=== PATIENT | female | born 1995 | race Caucasian/White ===

== ENCOUNTER 2021-07-15 14:07 | Emergency (ER) | payer BC, OTHER ==
[2021-07-15 14:19] VITALS: BP 124/74; PULSE 95
[2021-07-15] MEDS ORDERED: Sodium Chloride 0.9% 10 ML Syringe FLUSH PRN ×2 (14:19→14:58)
[2021-07-15] MEDS ORDERED: Ondansetron 4 MG/2 ML SDV IVPUSH ONE (14:24)
[2021-07-15] MEDS ORDERED: Sodium Chloride 0.9% 1,000 ML IV STA (14:24)
[2021-07-15] MEDS ORDERED: HYDROmorphone 0.5 MG/0.5 ML Syringe IVPUSH ONE ×2 (14:24→16:28)
[2021-07-15 14:45] LABS: ESTIMATED GFR > 60 mL/min (>60)
[2021-07-15] MEDS ORDERED: Iopamidol 612 MG/ML 100 ML Bottle IVPUSH ONE (14:58)
[2021-07-15] MEDS ORDERED: Ketorolac 30 MG/ML SDV IVPUSH ONE (16:44)
[2021-07-15] MEDS ORDERED: Dicyclomine 10 MG Cap PO ONE (16:45)
== END 2021-07-15 17:35 | disposition home or self-care (01) ==
LOC: JD.ED 14:07
DX: K52.9 Noninfective gastroenteritis and colitis, unspecified (principal); F17.210 Nicotine dependence, cigarettes, uncomplicated; Z79.899 Other long term (current) drug therapy
CPT/HCPCS: 36415; 74177; 80053; 81001; 84703; 85025; 86140; 96361; 96374; 96375; 96376; 99284; A9270; J1170; J1885; J2405; J3490; J7030; Q9967

== ENCOUNTER 2022-06-16 10:43 | Emergency (ER) | payer SELFPAY ==
[2022-06-16] MEDS ORDERED: Adenosine 6 MG/2 ML SDV ONE (10:50)
[2022-06-16] MEDS ORDERED: Sodium Chloride 0.9% 1,000 ML ONE (10:50)
[2022-06-16] MEDS ORDERED: Adenosine 12 MG/4 ML SDV ONE (10:50)
[2022-06-16] MEDS ORDERED: Diltiazem 25 MG/5 ML SDV ONE (10:51)
[2022-06-16] MEDS ORDERED: Adenosine 6 MG/2 ML SDV IVPUSH ONE (11:03)
[2022-06-16] MEDS ORDERED: Sodium Chloride 0.9% 1,000 ML IV ONE (11:04)
[2022-06-16 13:03] LABS: T4 FREE 1.03 ng/dL (0.76-1.46); TSH 2.111 uIU/mL (0.358-3.74)
[2022-06-16 20:26] VITALS: BP 101/76; PULSE 90
== END 2022-06-16 14:00 | disposition home or self-care (01) ==
LOC: JD.ED 10:43
DX: I47.1 Supraventricular tachycardia (principal); E03.9 Hypothyroidism, unspecified; Z79.899 Other long term (current) drug therapy
CPT/HCPCS: 36415; 84439; 84443; 84479; 84481; 93005; 96361; 96374; 99285; J0153; J7030; 93010; 99283

== ENCOUNTER 2022-07-08 09:21 | Emergency (ER) | payer OTHER ==
[2022-07-08] MEDS ORDERED: Sodium Chloride 0.9% 1,000 ML IV SCH (10:00)
[2022-07-08 10:12] LABS: BASOPHILS ABSOLUTE AUTO 0.01 K/mm3 (0.01-0.08); BASOPHILS PERCENT AUTO 0.1 % (0.1-1.2); EOSINOPHILS PERCENT AUTO 0 (0.7-5.8); HEMOGLOBIN 14.4 gm/dl (11.2-15.7); IMMATURE GRAN ABSOLUTE AUTO 0.01 K/mm3 (0.00-0.10); IMMATURE GRAN PERCENT AUTO 0.1 % (<=1.0); LYMPHOCYTES ABSOLUTE AUTO 1.01 K/mm3 (1.18-3.74); LYMPHOCYTES PERCENT AUTO 8.4 % (19.3-51.7); MEAN CORPUSCULAR HEMOGLOBIN 30.9 pg (25.6-32.2); MEAN CORPUSCULAR HGB CONC 34.3 g/dl (32.2-35.5); MEAN CORPUSCULAR VOLUME 90.1 fl (79.4-94.8); MEAN PLATELET VOLUME 10.5 fl (9.4-12.3); MONOCYTES ABSOLUTE AUTO 0.67 K/mm3 (0.24-0.36); MONOCYTES PERCENT AUTO 5.6 % (4.7-12.5); NEUTROPHILS ABSOLUTE AUTO 10.36 K/mm3 (1.56-6.13); NEUTROPHILS PERCENT AUTO 85.8 % (34.0-71.1); PLATELET COUNT,PLT 340 K/mm3 (182-369); RED BLOOD CELL COUNT 4.66 M/mm3 (3.98-5.22); WHITE BLOOD CELL COUNT,WBC 12.06 K/mm3 (3.98-10.04)
[2022-07-08 10:14] VITALS: BP 112/88
[2022-07-08 10:16] LABS: A/G RATIO 1.2 (1-2); ALBUMIN 4.4 g/dl (3.4-5.0); ANION GAP 14.6 (5-15); BILIRUBIN TOTAL 0.4 mg/dL (0.2-1.0); BUN/CREATININE RATIO 14.4 (14-18); CALCIUM 9.7 mg/dL (8.5-10.1); CREATININE 0.9 mg/dL (0.55-1.02); EST CRCL DRUG DOSING (CG) 95.55 mL/min; POTASSIUM,K 3.6 mEq/L (3.5-5.1); PROTEIN TOTAL,TP 8.2 g/dl (6.4-8.2)
[2022-07-08 10:21] LABS: APPEARANCE,URINE SLT CLOUDY (Clear); BILIRUBIN,URINE NEGATIVE (Negative); COLOR,URINE YELLOW (Yellow); GLUCOSE,URINE NEGATIVE (Negative); KETONES,URINE NEGATIVE (Negative); LEUKOCYTE ESTERASE,URINE 1+ (Negative); NITRITE,URINE NEGATIVE (Negative); OCCULT BLOOD,URINE NEGATIVE (Negative); PROTEIN,URINE TRACE (Negative); UROBILINOGEN,URINE 0.2 (0.2-1.0)
[2022-07-08 10:33] LABS: BACTERIA,URINE MANY /hpf (FEW); MUCUS,URINE MODERATE /hpf (FEW); RBC,URINE 0-5 /hpf (0-5)
[2022-07-08] MEDS ORDERED: methylPREDNISolone Sodium Succinate 125 MG/2 ML SDV IVPUSH ONE (10:40)
[2022-07-08] MEDS ORDERED: diphenhydrAMINE 50 MG/ML SDV IVPUSH ONE (10:41)
[2022-07-08] MEDS ORDERED: Famotidine 20 MG/2 ML SDV IVPUSH ONE (10:41)
[2022-07-08 11:00] VITALS: PULSE 65
== END 2022-07-08 12:50 | disposition home or self-care (01) ==
LOC: JD.ED 09:21
DX: L50.0 Allergic urticaria (principal); T43.225A Adverse effect of selective serotonin reuptake inhibitors, initial encounter; E03.9 Hypothyroidism, unspecified; Z86.16 Personal history of COVID-19; Z79.899 Other long term (current) drug therapy
CPT/HCPCS: 36415; 80053; 81001; 81025; 85025; 87086; 93005; 96374; 96375; 99285; J1200; J2930; J3490; J7030; 93010; 99284

== ENCOUNTER 2022-09-15 14:37 | Emergency (ER) | payer OTHER ==
[2022-09-15] MEDS ORDERED: Adenosine 6 MG/2 ML SDV ONE (14:47)
[2022-09-15] MEDS ORDERED: Adenosine 12 MG/4 ML SDV ONE (14:48)
[2022-09-15] MEDS ORDERED: Adenosine 12 MG/4 ML SDV IVPUSH ONE (14:50)
[2022-09-15] MEDS ORDERED: Sodium Chloride 0.9% 10 ML Syringe FLUSH PRN (14:56)
[2022-09-15] MEDS ORDERED: Sodium Chloride 0.9% 1,000 ML IV SCH (15:00)
[2022-09-15 15:10] LABS: BASOPHILS ABSOLUTE AUTO 0.04 K/mm3 (0.01-0.08); BASOPHILS PERCENT AUTO 0.4 % (0.1-1.2); EOSINOPHILS PERCENT AUTO 1.9 (0.7-5.8); HEMATOCRIT 47.3 % (34.1-44.9); HEMOGLOBIN 16.1 gm/dl (11.2-15.7); IMMATURE GRAN ABSOLUTE AUTO 0.02 K/mm3 (0.00-0.10); IMMATURE GRAN PERCENT AUTO 0.2 % (<=1.0); LYMPHOCYTES ABSOLUTE AUTO 3.18 K/mm3 (1.18-3.74); LYMPHOCYTES PERCENT AUTO 30.1 % (19.3-51.7); MEAN CORPUSCULAR HEMOGLOBIN 31.1 pg (25.6-32.2); MEAN CORPUSCULAR VOLUME 91.5 fl (79.4-94.8); MEAN PLATELET VOLUME 10.6 fl (9.4-12.3); MONOCYTES PERCENT AUTO 9.5 % (4.7-12.5); NEUTROPHILS ABSOLUTE AUTO 6.11 K/mm3 (1.56-6.13); NEUTROPHILS PERCENT AUTO 57.9 % (34.0-71.1); PLATELET COUNT,PLT 369 K/mm3 (182-369); RED BLOOD CELL COUNT 5.17 M/mm3 (3.98-5.22); WHITE BLOOD CELL COUNT,WBC 10.55 K/mm3 (3.98-10.04)
[2022-09-15 15:42] LABS: A/G RATIO 1.2 (1-2); ALBUMIN 4.9 g/dl (3.4-5.0); ANION GAP 18.3 (5-15); BILIRUBIN TOTAL 0.6 mg/dL (0.2-1.0); BUN/CREATININE RATIO 12.3 (14-18); CALCIUM 9.9 mg/dL (8.5-10.1); CREATININE 1.3 mg/dL (0.55-1.02); EST CRCL DRUG DOSING (CG) 66.15 mL/min; POTASSIUM,K 3.3 mEq/L (3.5-5.1); PROTEIN TOTAL,TP 8.9 g/dl (6.4-8.2); TSH 2.689 uIU/mL (0.358-3.74)
[2022-09-15 17:24] VITALS: BP 101/64; PULSE 88
== END 2022-09-15 16:45 | disposition home or self-care (01) ==
LOC: JD.ED 14:37
DX: I47.1 Supraventricular tachycardia (principal); E03.9 Hypothyroidism, unspecified; Z88.8 Allergy status to other drugs, medicaments and biological substances; Z79.899 Other long term (current) drug therapy; Z86.16 Personal history of COVID-19
CPT/HCPCS: 36415; 80053; 84443; 84484; 85025; 93005; 96361; 96374; 99285; J0153; J7030; 93010; 99284

== ENCOUNTER 2022-10-24 13:10 | Emergency (ER) | payer OTHER ==
[2022-10-24] MEDS ORDERED: Adenosine 6 MG/2 ML SDV ONE (13:20)
[2022-10-24] MEDS ORDERED: Adenosine 6 MG/2 ML SDV IVPUSH ONE (13:26)
[2022-10-24 13:44] LABS: BASOPHILS ABSOLUTE AUTO 0.1 K/mm3 (0.0-0.2); BASOPHILS PERCENT AUTO 0.6 % (0.0-1.0); EOSINOPHILS ABSOLUTE AUTO 0.1 K/mm3 (0.0-0.4); EOSINOPHILS PERCENT AUTO 1.2 % (0.0-6.0); HEMATOCRIT 41.6 % (37.0-47.0); HEMOGLOBIN 14.7 gm/dl (12.0-16.0); IMMATURE GRAN ABSOLUTE AUTO 0.03 K/mm3 (0.00-0.05); IMMATURE GRAN PERCENT AUTO 0.4 % (0.0-0.4); LYMPHOCYTES ABSOLUTE AUTO 2.3 K/mm3 (1.0-4.8); LYMPHOCYTES PERCENT AUTO 26.9 % (24.0-44.0); MEAN CORPUSCULAR HGB CONC 35.3 g/dl (32.0-36.0); MEAN CORPUSCULAR VOLUME 90.4 fl (83.0-99.0); MEAN PLATELET VOLUME 9.7 fl (9.4-12.3); MONOCYTES ABSOLUTE AUTO 0.7 K/mm3 (0.0-0.8); MONOCYTES PERCENT AUTO 8.2 % (0.0-8.0); NEUTROPHILS ABSOLUTE AUTO 5.4 K/mm3 (1.8-7.7); NEUTROPHILS PERCENT AUTO 62.7 % (41.0-71.0); PLATELET COUNT,PLT 328 K/mm3 (150-400); WHITE BLOOD CELL COUNT,WBC 8.54 K/mm3 (3.9-11.3)
[2022-10-24 14:16] LABS: A/G RATIO 1.2 (1-2); ALBUMIN 4.3 g/dl (3.4-5.0); ANION GAP 18.5 (5-15); BILIRUBIN TOTAL 0.3 mg/dL (0.2-1.0); BUN/CREATININE RATIO 11.1 (14-18); CALCIUM 9.5 mg/dL (8.5-10.1); CREATININE 0.9 mg/dL (0.55-1.02); EST CRCL DRUG DOSING (CG) 95.55 mL/min; MAGNESIUM 1.9 mg/dL (1.8-2.4); POTASSIUM,K 3.5 mEq/L (3.5-5.1); TSH 2.128 uIU/mL (0.358-3.74)
[2022-10-24 19:42] VITALS: BP 105/68; PULSE 95
== END 2022-10-24 14:55 | disposition home or self-care (01) ==
LOC: JD.ED 13:10
DX: I47.1 Supraventricular tachycardia (principal); E03.9 Hypothyroidism, unspecified; Z86.16 Personal history of COVID-19; Z79.899 Other long term (current) drug therapy; Z88.8 Allergy status to other drugs, medicaments and biological substances
CPT/HCPCS: 36415; 80053; 83735; 83880; 84443; 84481; 84484; 85025; 96374; 99285; J0153; 93010; 99284

== ENCOUNTER 2023-05-17 20:42 | Emergency (ER) | payer OTHER ==
[2023-05-17] MEDS: Adenosine 6 MG/2 ML SDV IVPUSH ONE ×2 (21:00→21:01)
[2023-05-17] MEDS: Sodium Chloride 0.9% 1,000 ML ONE (21:08)
[2023-05-17] MEDS: Adenosine 12 MG/4 ML SDV ONE (21:08)
[2023-05-17] MEDS: Adenosine 6 MG/2 ML SDV ONE (21:08)
[2023-05-17] MEDS: Sodium Chloride 0.9% 1,000 ML IV STA (21:09)
[2023-05-17] MEDS: Sodium Chloride 0.9% 10 ML Syringe FLUSH PRN (21:09)
[2023-05-17 21:10] LABS: BASOPHILS ABSOLUTE AUTO 0.1 K/mm3 (0.0-0.2); BASOPHILS PERCENT AUTO 0.4 % (0.0-1.0); EOSINOPHILS ABSOLUTE AUTO 0.3 K/mm3 (0.0-0.4); EOSINOPHILS PERCENT AUTO 2.4 % (0.0-6.0); HEMATOCRIT 40.3 % (37.0-47.0); HEMOGLOBIN 13.9 gm/dl (12.0-16.0); IMMATURE GRAN ABSOLUTE AUTO 0.05 K/mm3 (0.00-0.05); IMMATURE GRAN PERCENT AUTO 0.4 % (0.0-0.4); LYMPHOCYTES ABSOLUTE AUTO 2.9 K/mm3 (1.0-4.8); LYMPHOCYTES PERCENT AUTO 25.4 % (24.0-44.0); MEAN CORPUSCULAR HEMOGLOBIN 30.9 pg (28.0-32.0); MEAN CORPUSCULAR HGB CONC 34.5 g/dl (32.0-36.0); MEAN CORPUSCULAR VOLUME 89.6 fl (83.0-99.0); MEAN PLATELET VOLUME 10.2 fl (9.4-12.3); MONOCYTES ABSOLUTE AUTO 0.8 K/mm3 (0.0-0.8); NEUTROPHILS ABSOLUTE AUTO 7.3 K/mm3 (1.8-7.7); NEUTROPHILS PERCENT AUTO 64.4 % (41.0-71.0); PLATELET COUNT,PLT 313 K/mm3 (150-400); WHITE BLOOD CELL COUNT,WBC 11.35 K/mm3 (3.9-11.3)
[2023-05-17 21:38] LABS: A/G RATIO 1.3 (1-2); ALBUMIN 4.3 g/dl (3.4-5.0); ANION GAP 15.8 (5-15); BILIRUBIN TOTAL 0.3 mg/dL (0.2-1.0); BUN/CREATININE RATIO 11.3 (14-18); CALCIUM 9.2 mg/dL (8.5-10.1); CREATININE 0.8 mg/dL (0.55-1.02); EST CRCL DRUG DOSING (CG) 110.39 mL/min; MAGNESIUM 1.7 mg/dL (1.8-2.4); POTASSIUM,K 2.8 mEq/L (3.5-5.1); PROTEIN TOTAL,TP 7.7 g/dl (6.4-8.2)
[2023-05-17] MEDS: Potassium Chloride 20 MEQ Tab.ER PO ONE (22:45)
[2023-05-17 23:54] VITALS: BP 125/78; PULSE 68
== END 2023-05-17 23:54 | disposition home or self-care (01) ==
LOC: JD.ED 20:42
DX: O99.891 Other specified diseases and conditions complicating pregnancy (principal); I47.10 Supraventricular tachycardia, unspecified; E87.6 Hypokalemia; E03.9 Hypothyroidism, unspecified; Z88.8 Allergy status to other drugs, medicaments and biological substances; Z79.899 Other long term (current) drug therapy; Z86.16 Personal history of COVID-19; Z3A.14 14 weeks gestation of pregnancy
CPT/HCPCS: 36415; 80053; 83735; 84443; 84484; 85025; 93005; 96361; 96374; 99285; A9270; J0153; J3490; J7030; 93010; 99284

== ENCOUNTER 2023-09-22 10:33 | Emergency (ER) | payer OTHER ==
[2023-09-22] MEDS: Adenosine 6 MG/2 ML SDV IVPUSH ONE ×2 (10:44→11:09)
[2023-09-22] MEDS: Adenosine 12 MG/4 ML SDV IVPUSH ONE (10:46)
[2023-09-22 11:00] VITALS: PULSE 89
[2023-09-22] MEDS: LORazepam 2 MG/ML SDV IVPUSH ONE (11:00)
[2023-09-22] MEDS: Sodium Chloride 0.9% 1,000 ML IV SCH (11:01)
[2023-09-22 11:06] LABS: BASOPHILS ABSOLUTE AUTO 0.1 K/mm3 (0.0-0.2); BASOPHILS PERCENT AUTO 0.9 % (0.0-1.0); EOSINOPHILS ABSOLUTE AUTO 0.4 K/mm3 (0.0-0.4); EOSINOPHILS PERCENT AUTO 4.7 % (0.0-6.0); HEMATOCRIT 47.8 % (37.0-47.0); HEMOGLOBIN 16.5 gm/dl (12.0-16.0); IMMATURE GRAN ABSOLUTE AUTO 0.03 K/mm3 (0.00-0.05); IMMATURE GRAN PERCENT AUTO 0.4 % (0.0-0.4); LYMPHOCYTES ABSOLUTE AUTO 2.5 K/mm3 (1.0-4.8); LYMPHOCYTES PERCENT AUTO 32.5 % (24.0-44.0); MEAN CORPUSCULAR HEMOGLOBIN 31.1 pg (28.0-32.0); MEAN CORPUSCULAR HGB CONC 34.5 g/dl (32.0-36.0); MEAN CORPUSCULAR VOLUME 90.2 fl (83.0-99.0); MEAN PLATELET VOLUME 10.2 fl (9.4-12.3); MONOCYTES ABSOLUTE AUTO 0.7 K/mm3 (0.0-0.8); NEUTROPHILS PERCENT AUTO 52.5 % (41.0-71.0); PLATELET COUNT,PLT 354 K/mm3 (150-400); WHITE BLOOD CELL COUNT,WBC 7.66 K/mm3 (3.9-11.3)
[2023-09-22] MEDS: Adenosine 12 MG/4 ML SDV ONE (11:07)
[2023-09-22] MEDS: Adenosine 6 MG/2 ML SDV ONE (11:07)
[2023-09-22] MEDS: Sodium Chloride 0.9% 10 ML Syringe FLUSH PRN (11:10)
[2023-09-22 11:55] LABS: A/G RATIO 1.3 (1-2); ALBUMIN 4.9 g/dl (3.4-5.0); ANION GAP 18.4 (5-15); BILIRUBIN TOTAL 0.7 mg/dL (0.2-1.0); BUN/CREATININE RATIO 10.9 (14-18); CALCIUM 10.1 mg/dL (8.5-10.1); CREATININE 1.1 mg/dL (0.55-1.02); EST CRCL DRUG DOSING (CG) 77.49 mL/min; POTASSIUM,K 3.4 mEq/L (3.5-5.1); PROTEIN TOTAL,TP 8.6 g/dl (6.4-8.2); TSH 4.19 uIU/mL (0.358-3.74)
[2023-09-22 14:24] VITALS: BP 108/80
== END 2023-09-22 12:45 | disposition home or self-care (01) ==
LOC: JD.ED 10:33
DX: I47.10 Supraventricular tachycardia, unspecified (principal); E03.9 Hypothyroidism, unspecified; Z88.8 Allergy status to other drugs, medicaments and biological substances; Z79.890 Hormone replacement therapy; Z79.899 Other long term (current) drug therapy; Z86.16 Personal history of COVID-19
CPT/HCPCS: 36415; 80053; 84443; 84484; 85025; 93005; 93010; 96361; 96374; 96375; 99284; 99285-25; J0153; J2060; J3490; J7030

== ENCOUNTER 2023-12-24 20:14 | Emergency (ER) | payer OTHER ==
[2023-12-24] MEDS: Adenosine 6 MG/2 ML SDV IVPUSH ONE ×2 (20:26→20:47)
[2023-12-24] MEDS: Sodium Chloride 0.9% 1,000 ML IV ONE (20:26)
[2023-12-24 20:30] LABS: BASOPHILS PERCENT AUTO 0.4 % (0.0-1.0); EOSINOPHILS ABSOLUTE AUTO 0.1 K/mm3 (0.0-0.4); EOSINOPHILS PERCENT AUTO 1.1 % (0.0-6.0); HEMATOCRIT 45.2 % (37.0-47.0); HEMOGLOBIN 15.7 gm/dl (12.0-16.0); IMMATURE GRAN ABSOLUTE AUTO 0.04 K/mm3 (0.00-0.05); IMMATURE GRAN PERCENT AUTO 0.4 % (0.0-0.4); LYMPHOCYTES ABSOLUTE AUTO 2.5 K/mm3 (1.0-4.8); LYMPHOCYTES PERCENT AUTO 23.3 % (24.0-44.0); MEAN CORPUSCULAR HEMOGLOBIN 31.2 pg (28.0-32.0); MEAN CORPUSCULAR HGB CONC 34.7 g/dl (32.0-36.0); MEAN CORPUSCULAR VOLUME 89.9 fl (83.0-99.0); MEAN PLATELET VOLUME 10.1 fl (9.4-12.3); MONOCYTES ABSOLUTE AUTO 0.9 K/mm3 (0.0-0.8); MONOCYTES PERCENT AUTO 8.5 % (0.0-8.0); NEUTROPHILS ABSOLUTE AUTO 7.2 K/mm3 (1.8-7.7); NEUTROPHILS PERCENT AUTO 66.3 % (41.0-71.0); PLATELET COUNT,PLT 336 K/mm3 (150-400); RED BLOOD CELL COUNT 5.03 M/mm3 (4.10-5.30); WHITE BLOOD CELL COUNT,WBC 10.84 K/mm3 (3.9-11.3)
[2023-12-24] MEDS: Adenosine 12 MG/4 ML SDV ONE (20:30)
[2023-12-24 20:48] LABS: A/G RATIO 1.3 (1-2); ALBUMIN 4.7 g/dl (3.4-5.0); ANION GAP 14.5 (5-15); BILIRUBIN TOTAL 0.4 mg/dL (0.2-1.0); EST CRCL DRUG DOSING (CG) 85.24 mL/min; POTASSIUM,K 3.5 mEq/L (3.5-5.1); PROTEIN TOTAL,TP 8.4 g/dl (6.4-8.2)
[2023-12-24] MEDS: LORazepam 2 MG/ML SDV ONE (20:48)
[2023-12-24] MEDS: Sodium Chloride 0.9% 1,000 ML ONE (20:48)
[2023-12-24 21:02] VITALS: BP 125/93; PULSE 104
== END 2023-12-24 21:30 | disposition home or self-care (01) ==
LOC: JD.ED 20:14
DX: I47.10 Supraventricular tachycardia, unspecified (principal); Z86.16 Personal history of COVID-19; Z87.891 Personal history of nicotine dependence; Z88.8 Allergy status to other drugs, medicaments and biological substances
CPT/HCPCS: 36415; 80053; 85025; 96374; 99285; J0153; J7030

== ENCOUNTER 2024-01-08 14:20 | Emergency (ER) | payer OTHER ==
[2024-01-08 15:04] LABS: BASOPHILS PERCENT AUTO 0.5 % (0.0-1.0); EOSINOPHILS ABSOLUTE AUTO 0.3 K/mm3 (0.0-0.4); EOSINOPHILS PERCENT AUTO 3.2 % (0.0-6.0); HEMATOCRIT 39.4 % (37.0-47.0); HEMOGLOBIN 13.3 gm/dl (12.0-16.0); IMMATURE GRAN ABSOLUTE AUTO 0.02 K/mm3 (0.00-0.05); IMMATURE GRAN PERCENT AUTO 0.2 % (0.0-0.4); LYMPHOCYTES ABSOLUTE AUTO 1.1 K/mm3 (1.0-4.8); LYMPHOCYTES PERCENT AUTO 13.7 % (24.0-44.0); MEAN CORPUSCULAR HEMOGLOBIN 30.9 pg (28.0-32.0); MEAN CORPUSCULAR HGB CONC 33.8 g/dl (32.0-36.0); MEAN CORPUSCULAR VOLUME 91.6 fl (83.0-99.0); MEAN PLATELET VOLUME 9.7 fl (9.4-12.3); MONOCYTES ABSOLUTE AUTO 0.6 K/mm3 (0.0-0.8); MONOCYTES PERCENT AUTO 7.5 % (0.0-8.0); NEUTROPHILS ABSOLUTE AUTO 6.2 K/mm3 (1.8-7.7); NEUTROPHILS PERCENT AUTO 74.9 % (41.0-71.0); PLATELET COUNT,PLT 280 K/mm3 (150-400); WHITE BLOOD CELL COUNT,WBC 8.22 K/mm3 (3.9-11.3)
[2024-01-08 15:35] LABS: A/G RATIO 1.2 (1-2); ALANINE AMINOTRANSFERASE,ALT 18 U/L (14-59); ALBUMIN 3.9 g/dl (3.4-5.0); ALKALINE PHOSPHATASE 46 U/L (46-116); ANION GAP 11.3 (5-15); ASPARTATE AMNIOTRANSFERASE,AST 16 U/L (15-37); BILIRUBIN TOTAL 0.4 mg/dL (0.2-1.0); BLOOD UREA NITROGEN,BUN 17 mg/dL (7-18); CALCIUM 9.2 mg/dL (8.5-10.1); CARBON DIOXIDE,CO2 28 mEq/L (21-32); CHLORIDE,CL 103 mEq/L (98-107); EST CRCL DRUG DOSING (CG) 85.24 mL/min; ESTIMATED GFR 79 mL/min (>60); GLUCOSE RANDOM 117 mg/dL (70-99); POTASSIUM,K 4.3 mEq/L (3.5-5.1); PROTEIN TOTAL,TP 7.1 g/dl (6.4-8.2); SODIUM,NA 138 mEq/L (136-145)
[2024-01-08 15:36] LABS: HCG QUANTITATIVE < 1.0 mIU/mL
[2024-01-08 15:40] LABS: APPEARANCE,URINE CLOUDY (Clear); BILIRUBIN,URINE 1+ (Negative); COLOR,URINE RED (Yellow); GLUCOSE,URINE NEGATIVE (Negative); KETONES,URINE TRACE (Negative); LEUKOCYTE ESTERASE,URINE NEGATIVE (Negative); NITRITE,URINE POSITIVE (Negative); OCCULT BLOOD,URINE 3+ (Negative); PH,URINE 8.5 (5.0-8.0); PROTEIN,URINE 3+ (Negative)
[2024-01-08] MEDS: Sodium Chloride 0.9% 1,000 ML IV ONE (16:02)
[2024-01-08 16:29] LABS: BACTERIA,URINE MODERATE /hpf (FEW); MUCUS,URINE NOT SEEN /hpf (FEW); RBC,URINE TOO NUMEROUS TO CNT /hpf (0-5); SQUAMOUS EPITHELIAL CELLS,UR 0-5 /hpf (0-5); WBC,URINE 0-5 /hpf (0-5)
[2024-01-08] MEDS: Tranexamic Acid 1,000 MG in Sodium Chloride 0.9% 100 ML IV ONE (17:35)
[2024-01-08] MEDS: cefTRIAXone 2 GM in Sodium Chloride 0.9% 100 ML IV ONE (17:58)
[2024-01-08 18:36] VITALS: BP 111/71; PULSE 77
== END 2024-01-08 18:31 | disposition home or self-care (01) ==
LOC: JD.ED 14:20
DX: N93.9 Abnormal uterine and vaginal bleeding, unspecified (principal); N30.01 Acute cystitis with hematuria; N85.00 Endometrial hyperplasia, unspecified; E03.9 Hypothyroidism, unspecified; Z86.16 Personal history of COVID-19; Z88.8 Allergy status to other drugs, medicaments and biological substances; Z79.899 Other long term (current) drug therapy
CPT/HCPCS: 36415; 76830; 80053; 81001; 84702; 85025; 86850; 86900; 86901; 87086; 96361; 96365; 96375; 99284; A9270; J0696; J3490; J7030